=== PATIENT | female | born 1970 | race Caucasian/White ===

== ENCOUNTER → 2017-01-26 | Outpatient (CLI) | payer BC ==
[~2017-01-26] MED LIST: BUPROPION PO; DICLOFENAC; HCTZ; LORTAB 5/500 501 TAB PO; PERCOCET 5/321 UDTAB PO
== END ==
LOC: COL.VAS 15:00
DX: R79.89 Other specified abnormal findings of blood chemistry (principal); M79.89 Other specified soft tissue disorders

== ENCOUNTER → 2019-04-30 | Outpatient (CLI) | payer BC | LOC: MC.RAD 15:58 | DX: Z12.31 Encounter for screening mammogram for malignant neoplasm of breast (principal); N63.20 Unspecified lump in the left breast, unspecified quadrant ==

== ENCOUNTER → 2020-09-05 | Outpatient (CLI) | payer BC | LOC: MC.RAD 10:00 | DX: N63.20 Unspecified lump in the left breast, unspecified quadrant (principal) ==